=== PATIENT | male | born 1980 | race Caucasian/White ===

== ENCOUNTER 2017-10-22 03:35 | Outpatient (CLI) | payer SELFPAY ==
[2017-10-22 09:03] LABS: HEMOGLOBIN A1C 4.8 % (4.5-6.2)
[2017-10-22 09:16] LABS: CHOL/HDL RATIO 3.38 (0.00-4.99)
== END 2017-10-22 23:59 | disposition home or self-care (01) ==
LOC: HW HEART 03:35
DX: Z00.00 Encounter for general adult medical examination without abnormal findings (principal)
CPT/HCPCS: 36415